=== PATIENT | female | born 1985 | race Caucasian/White ===

== ENCOUNTER 2016-11-08 10:40 | Emergency (ER) | payer SELFPAY ==
[~2016-11-08] VITALS: Ht 172.7 cm; Wt 109.6 kg
[~2016-11-08 10:40] MED LIST: BACT800T5 PO; ZOFR4TAB3 SL
[2016-11-08 10:44] VITALS: BP 139/81; PULSE 89; RESP 16; TEMP 97.7; O2SAT 96
[2016-11-08] MEDS ORDERED: ORPH100T99 PO (11:14)
[2016-11-08] MEDS ORDERED: NORC5TAB PO (11:14)
[2016-11-08] MEDS ORDERED: MEDR4PAK PO (11:14)
--- NOTE | 2016-11-08 11:14 | PD ---
HPI Chief Complaint: Musculoskeletal Complaint Time Seen by Provider: 11:07 Travel History International Travel<30 days: No Contact w/Intl Traveler<30days: No Traveled to known affect area: No History of Present Illness HPI The patient is a 31-year-old female who presents emergency department for back pain. The patient states she developed back pain 3 days ago, cannot remember a precipitating factor or traumatic event that preceded the back pain. The back pain is located the mid to lower lumbar region and radiates down the right leg to the right knee. Patient does have a history of sciatica in the past that radiated all the way to the right foot. The pain is worse with position changes such as going from lying to sitting, sitting to standing, and rotation of the thorax. She denies any nausea, vomiting, abdominal pain, dysuria, frequency, urgency, hematuria, or urinary incontinence. The patient's last menstrual cycle ended last Sunday, she denies . She denies any history nephrolithiasis. Symptoms are moderate, exacerbated by movement, and minimally alleviated at rest. She took Motrin at home with minimal alleviation of her symptoms. PFSH Past Medical History Hx Anticoagulant Therapy: No Blood Disorders: No Anxiety: Yes Depression: Yes Cancer: No Cardiovascular Problems: No Chemotherapy: No Cerebrovascular Accident: No Diabetes: No Diminished Hearing: No Endocrine: No Genitourinary: No Headaches: Yes Immune Disorder: No Musculoskeletal: No Neurologic: Yes Psychiatric: Yes Respiratory: No Radiation Therapy: No Tetanus Vaccination: Unknown Influenza Vaccination: No ?: Not LMP: THIS WEEK : 3 Para: 1 Miscarriage: 1 : 1 Dilation and Curettage (D&C): Yes Past Surgical History Gynecologic Surgery: Yes (LEEP) Hysterectomy: No Other Surgery: Yes (LEEP 2001) Social History Alcohol Use: Yes (OCC) Tobacco Use: Yes (2 packs a week) Substance Use: Yes (OCC POT) Allergies-Medications (Allergen,Severity, Reaction): Coded Allergies: No Known Allergies (Verified , 11/08/16) Reported Meds & Prescriptions Reported Meds & Active Scripts Active Review of Systems Except as stated in HPI: all other systems reviewed are Neg General / Constitutional: No: Fever Gastrointestinal: No: Nausea, Vomiting, Abdominal Pain Genitourinary: No: Urgency, Frequency, Dysuria, Hematuria, Pelvic Pain, Flank Pain, Discharge, Vaginal Bleeding Musculoskeletal: Positive: Limited ROM, Pain Neurologic: No: Paresthesia, Sensory Disturbance Physical Exam Narrative GENERAL: Awake, alert, pleasant 31-year-old female who appears her stated age and is in no acute respiratory distress. She does appear mild discomfort. SKIN: Focused skin assessment warm/dry. HEAD: Atraumatic. Normocephalic. EYES: Pupils equal and round. No scleral icterus. No injection or drainage. ENT: No nasal bleeding or discharge. Mucous membranes pink and moist. NECK: Trachea midline. No JVD. MUSCULOSKELETAL: No obvious deformities. No clubbing. No cyanosis. No edema. Tenderness over the right gluteal area consistent with sciatica. Back: Mild tenderness of the paravertebral muscles, right greater than left. Mild tenderness of the right sacroiliac. No obvious step-off. No CVA tenderness. NEUROLOGICAL: Awake and alert. No obvious cranial nerve deficits. Motor grossly within normal limits. Normal speech. Nonfocal. PSYCHIATRIC: Appropriate mood and affect; insight and judgment normal. Data Data Last Documented VS Vital Signs Date Time Temp Pulse Resp B/P Pulse Ox O2 Delivery O2 Flow Rate FiO2 11/08/16 10:44 97.7 89 16 139/81 96 Orders Ketorolac Inj (Toradol Inj) (11/08/16 11:15) Orphenadrine Inj (Norflex Inj) (11/08/16 11:15) Morphine Inj (Morphine Inj) (11/08/16 11:15) Ondansetron Odt (Zofran Odt) (11/08/16 11:15) [facility] Medical Decision Making Medical Screen Exam Complete: Yes Emergency Medical Condition: Yes Medical Record Reviewed: Yes Differential Diagnosis Differential diagnosis includes back pain with radiculopathy, sciatica, herniated disc, UTI, ectopic , muscle spasm. Narrative Course The patient's physical examination is consistent with musculoskeletal pain, she denies any symptoms including dysuria, frequency, urgency, hematuria, , vaginal bleeding, or vaginal discharge. Pain is elicited with positional changes, most likely back pain with radiculopathy. The patient was offered her IV versus IM medications, patient elected to have IM medications. Therefore, the patient was administered Toradol, Norflex, morphine, and Zofran. She will be discharged home on a Medrol Dosepak, [place], and Norflex. She is advised to apply ice and/or heat to the affected area, range of motion exercises , stretching, and a follow-up with her primary physician. Work excuse for 2 days. Diagnosis Primary Impression: Back pain with right-sided radiculopathy Patient Instructions: General Instructions Additional Instructions: Medications as directed. Follow-up with your primary physician. Work his keys for 2 days. Ice and/or heat to the affected area. Return if symptoms worsen or progress. Med/Other Pt SpecificInfo: Prescription(s) given Scripts Hydrocodone-Acetaminophen ([place])5-325 mg Tab1 Tab PO Q6H PRN (PAIN) #15 TAB Ref 0 Prov:Hung Morelos MD 11/08/16 Orphenadrine ER 12 HR (Orphenadrine CR)100 Mg Oil885 Mg PO Q12HR #20 TAB Ref 0 Prov:Hung Morelos MD 11/08/16 Methylprednisolone Dosepak (Medrol Dosepak)4 Mg Dspk4 Mg PO DIRECTED #1 DSPK Ref 0 Per Pharmacist direction Prov:Hung Morelos MD 11/08/16 Disposition: 01 DISCHARGE HOME Condition: Stable Hung Morelos MD Nov 08, 2016 11:14
[2016-11-08] MEDS ORDERED: KETOROLAC TROMETHAMINE 60 MG/2 ML (IM) VIAL IM ONE (11:15)
[2016-11-08] MEDS ORDERED: MORPHINE SULFATE 4 MG/ML INJ IM ONE (11:15)
[2016-11-08] MEDS ORDERED: ONDANSETRON ODT 4 MG TAB PO ONE (11:15)
[2016-11-08] MEDS ORDERED: ORPHENADRINE INJ 60 MG/2 ML AMP IM ONE (11:15)
== END 2016-11-08 11:50 | disposition home or self-care (01) ==
LOC: PHEFT 10:40
DX: M54.16 Radiculopathy, lumbar region (principal); F17.210 Nicotine dependence, cigarettes, uncomplicated
CPT/HCPCS: 96372; 99284; J1885; J2270; J2360

== ENCOUNTER 2017-01-30 11:14 | Emergency (ER) | payer SELFPAY ==
[~2017-01-30] VITALS: Ht 172.7 cm; Wt 112.1 kg
[~2017-01-30 11:14] MED LIST changes: -BACT800T5 PO; +MEDR4PAK PO; +NORC5TAB PO; +ORPH100T99 PO; -ZOFR4TAB3 SL
[2017-01-30 11:39] VITALS: BP 168/84; PULSE 102; RESP 20; TEMP 98.8; O2SAT 96
[2017-01-30 13:03] VITALS: BP 125/73; PULSE 95; RESP 20; O2SAT 98
--- NOTE | 2017-01-30 13:30 | PD ---
HPI Chief Complaint: Cold / Flu Symptoms Time Seen by Provider: 13:13 Travel History International Travel<30 days: No Contact w/Intl Traveler<30days: No Traveled to known affect area: No History of Present Illness HPI 31-year-old female presents to the emergency room for evaluation of mildly productive cough, sore throat, and body aches for the past 5 days. Congestion started 2 days ago. She has been taking [id number] Sudafed. She reports fever last night of 101. It was relieved with Aleve. She has not taken anything today. Patient denies chronic medical conditions or daily medications. She did not have a flu shot this year. States she was recently around people with strep and pneumonia. PFS Past Medical History Medical History: Denies Significant Hx Hx Anticoagulant Therapy: No Blood Disorders: No Anxiety: Yes Depression: Yes Cancer: No Cardiovascular Problems: No Chemotherapy: No Cerebrovascular Accident: No Diabetes: No Diminished Hearing: No Endocrine: No Genitourinary: No Headaches: Yes Immune Disorder: No Musculoskeletal: No Neurologic: Yes Psychiatric: Yes Respiratory: No Immunizations Current: No Radiation Therapy: No Tetanus Vaccination: > 5 Years Influenza Vaccination: No ?: Not LMP: now : 3 Para: 1 Miscarriage: 1 : 1 Dilation and Curettage (D&C): Yes Past Surgical History Gynecologic Surgery: Yes (LEEP) Hysterectomy: No Other Surgery: Yes (LEEP 2001) Social History Alcohol Use: Yes (OCC) Tobacco Use: Yes (1 pk) Substance Use: No (denies) Allergies-Medications (Allergen,Severity, Reaction): Coded Allergies: No Known Allergies (Verified , 01/30/17) Reported Meds & Prescriptions Reported Meds & Active Scripts Active Ventolin Hfa 18 GM Inh (Albuterol Sulfate) 90 Mcg/Act Aer 2 Puff INH Q6H PRN Review of Systems Except as stated in HPI: all other systems reviewed are Neg Physical Exam Narrative GENERAL: Well-nourished, well-developed female in no acute distress. Afebrile. Ambulatory. SKIN: Focused skin assessment warm/dry. HEAD: Normocephalic. EYES: No scleral icterus. No injection or drainage. NECK: Supple, trachea midline. No JVD or lymphadenopathy. EARS: Bilateral pinnae and external canals appear within normal limits. Bilateral tympanic membranes without erythema, dullness or perforation. ENT: Mucosa pink and moist. Mild erythema without edema or exudates. No uvular edema. No uvular, palatal, or tonsillar deviation. Airway patent. Nasal turbinates appear normal without nasal blood, purulent drainage or septal hematoma. CARDIOVASCULAR: Regular rate and rhythm without murmurs, gallops, or rubs. RESPIRATORY: No accessory muscle use. Diminished lung sounds bilaterally. Wheezes in the right lung field. Data Data Last Documented VS Vital Signs Date Time Temp Pulse Resp B/P (MAP) Pulse Ox O2 Delivery O2 Flow Rate FiO2 01/30/17 13:03 95 20 125/73 (90) 98 Room Air 01/30/17 11:39 98.8 Orders Orders Chest, Pa & Lat (01/30/17 ) Group A Rapid Strep Screen (01/30/17 13:20) Strep Culture (Group A) (01/30/17 13:30) [facility] Medical Decision Making Medical Screen Exam Complete: Yes Emergency Medical Condition: Yes Medical Record Reviewed: Yes Differential Diagnosis Pneumonia, bronchitis, upper respiratory infection, sinusitis, influenza, strep Narrative Course 31-year-old female presents to the emergency room for evaluation of cough and cold medications for the past 5 days. Patient reports fever of 101 yesterday that was relieved with Aleve but none since. Physical exam shows mild erythema of pharynx without edema or exudates. Lungs sounds are diminished bilaterally with wheezing in the right lung field. Patient is a smoker. Vital signs stable. No increased work of breathing. 98% on room air. Chest x-ray is negative. Rapid strep is negative. This is viral upper respiratory infection. Patient discharged with prescription for inhaler and told to follow up with a primary care physician or return for worsening symptoms. Diagnosis Primary Impression: Bronchitis Referrals: Primary Care Physician Additional Instructions: Rest and drink plenty of fluids. Use inhaler as directed, as needed for wheezing. Continue [id number] cough and cold medications as directed. Follow-up with a primary care physician. Return to the emergency room for worsening symptoms. Med/Other Pt SpecificInfo: Prescription(s) given Scripts Albuterol 18 GM Inh (Ventolin Hfa 18 GM Inh) 90 Mcg/Act Aer 2 PUFF INH Q6H Y for SHORTNESS OF BREATH, #1 INHALER 0 Refills Prov: Hung Morelos MD 01/30/17 Disposition: 01 DISCHARGE HOME Condition: Stable Helen Morataya Jan 30, 2017 13:30
[2017-01-30] MEDS ORDERED: VENTAER INH (14:05)
--- NOTE | 2017-01-30 15:19 | RADRPT ---
EXAM DATE/TIME: 01/30/2017 13:28 [place] COMPARISON: No previous studies available for comparison. INDICATIONS : Cough and short of breath for 4 days. MEDICAL HISTORY : None. SURGICAL HISTORY : None. ENCOUNTER: Initial ACUITY: 4 - 6 days PAIN SCORE: 0/10 LOCATION: Bilateral chest FINDINGS: PA and lateral views of the chest demonstrate the lungs to be symmetrically aerated without evidence of mass, infiltrate or effusion. The cardiomediastinal contours are unremarkable. Osseous structure s are intact. CONCLUSION: 1. No acute cardiopulmonary findings. Mohamud Cárdenas MD on January 30, 2017 at 15:17 Board Certified Radiologist. This report was verified electronically.
== END 2017-01-30 15:52 | disposition home or self-care (01) ==
LOC: PHED 11:14
DX: J40 Bronchitis, not specified as acute or chronic (principal)
CPT/HCPCS: 71020; 87081; 87880; 99284